=== PATIENT | female | born 2000 | race Caucasian/White ===

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

== ENCOUNTER 2018-04-07 23:22 | Emergency (ER) | payer BC, OTHER ==
[~2018-04-07] VITALS: Ht 165.1 cm; Wt 117.9 kg
--- NOTE | ~2018-04-07 | EKG ---
[place], [place] ELECTROCARDIOGRAM REPORT NAME: ELVIA PEPE UNIT #: [id number] ROOM: DOCTOR: EPIPHANY DRAFT REPORT BIRTHDATE: [birth year] [facility] Test Date: 2018-04-08 Test Time: 00:32:36 Pat Name: ELVIA PEPE Department: Room: Gender: F [employer] Manager: Lobo Rasmussen : 2000 Requested By: ABAD BOWMAN PA-C Order Number: [id number] Reading MD: Chirag Gardner MD Measurements Intervals [place] Rate: 77 P: 45 KS: 204 QRS: 52 QRSD: 80 T: 9 QT: 365 QTc: 414 Interpretive Statements Sinus rhythm Borderline prolonged [place] interval Probable left atrial enlargement Baseline wander in lead(s) I,III,aVL,aVF Electronically Signed On 04-08-2018 16:30:08 PST by Chirag Gardner MD CM:EKGRPT:ELECTROCARDIOGRAM REPORT 1630 ABAD BOWMAN PA-C EPIPHANY DRAFT REPORT ABAD BOWMAN PA-C
[~2018-04-07 23:22] MED LIST changes: +BACTROBAN CREAM15 GM T
[2018-04-08 00:09] LABS: BILIRUBIN NEGATIVE (NEGATIVE); BLOOD 3+ (NEGATIVE); CLARITY CLOUDY (CLEAR); COLOR YELLOW (YELLOW); GLUCOSE NEGATIVE (NEGATIVE); KETONE NEGATIVE (NEGATIVE); LEUKO ESTERASE 2+ (NEGATIVE); NITRITE NEGATIVE (NEGATIVE); SPECIFIC GRAVITY >= 1.030 (1.005-1.030); UROBILINOGEN 0.2 E.U./dl (0.2-1.0)
[2018-04-08 00:09] LABS: BASO # 0.1 10*3/uL (0.0-0.1); BASO % 0.7 % (0.0-1.0); EOS # 0.3 10*3/uL (0.0-0.4); HEMATOCRIT 35.7 % (37.0-47.0); HEMOGLOBIN 11.5 g/dl (12.0-16.0); LYMPH # 3.2 10*3/uL (1.3-4.4); LYMPH % 30.5 % (27.0-41.0); MEAN CELL VOLUME 92.2 fl (81.0-99.0); MEAN CORPUSCULAR HGB 29.7 pg (27.0-31.0); MEAN CORPUSCULAR HGB CONC 32.2 g/dl (33.0-37.0); MEAN PLATELET VOLUME 10.2 fl (9.6-12.3); MONO % 9.5 % (3.0-9.0); NEUT # 5.8 10*3/uL (2.3-7.9); NEUT % 55.7 % (47.0-73.0); PLATELET COUNT AUTOMATED 346 10*3/uL (130-400); RED BLOOD COUNT 3.87 10*6/uL (4.10-5.10); RED CELL DISTRI WIDTH 13.2 % (0-14.5); WHITE BLOOD COUNT 10.4 10*3/uL (4.8-10.8)
[2018-04-08 00:18] LABS: BACTERIA 1+; EPITHELIAL CELLS 45-50; RBC 31-40 rbc/hpf (0-2); WBC 31-40 wbc/hpf (0-5)
[2018-04-08 00:26] LABS: ALBUMIN 2.9 gm/dl (3.1-4.5); ALKALINE PHOSPHATASE 115 U/L (45-117); BUN 21 mg/dl (7-24); CHLORIDE 103 mmol/L (98-107); POTASSIUM 3.9 mmol/L (3.5-5.1); SGOT/AST 32 IU/L (3-35); SGPT/ALT 33 U/L (12-78); SODIUM 137 mmol/L (136-145); TOTAL PROTEIN 7.3 gm/dL (6.4-8.2)
[2018-04-08 00:29] LABS: TROPONIN I < 0.015 ng/ml (<0.045)
[2018-04-08 01:45] VITALS: BP 120/79
[2018-04-08] MEDS ORDERED: CEPHALEXIN500 M1 PO (02:15)
== END 2018-04-08 02:01 | disposition home or self-care (01) ==
LOC: ED 23:22
PROVIDERS: Physician Assistant
DX: O90.89 Other complications of the puerperium, not elsewhere classified (principal); O86.20 Urinary tract infection following delivery, unspecified; O99.335 Smoking (tobacco) complicating the puerperium; R55 Syncope and collapse; G89.18 Other acute postprocedural pain

== ENCOUNTER → 2021-09-21 | Outpatient (CLI) | payer BC, OTHER ==
[~2021-09-21] MED LIST changes: +CEPHALEXIN500 M1 PO
== END | disposition home or self-care (01) ==
LOC: US 13:54
PROVIDERS: ATTEND Nurse Practitioner Family
DX: R19.7 Diarrhea, unspecified (principal); K76.0 Fatty (change of) liver, not elsewhere classified; G43.909 Migraine, unspecified, not intractable, without status migrainosus

== ENCOUNTER → 2021-11-12 | Outpatient (CLI) | payer BC, OTHER | LOC: MRI 13:00 | PROVIDERS: ATTEND Psychiatry & Neurology Neurology | DX: C71.9 Malignant neoplasm of brain, unspecified (principal); R90.82 White matter disease, unspecified ==

== ENCOUNTER 2024-06-28 09:29 | Emergency (ER) | payer OTHER ==
[~2024-06-28] VITALS: Wt 68.0 kg
[2024-06-28] MEDS ORDERED: SODIUM CHLORIDE 0.9% 1,000 ML IV ONE (10:05)
[2024-06-28 10:25] LABS: BASO # 0.1 10*3/uL (0.0-0.1); BASO % 0.5 % (0.0-1.0); EOS # 0.7 10*3/uL (0.0-0.4); EOS % 4.8 % (1.0-4.0); HEMATOCRIT 44.8 % (37.0-47.0); MEAN CELL VOLUME 87.5 fl (81.0-99.0); MEAN CORPUSCULAR HGB 28.1 pg (27.0-31.0); MEAN CORPUSCULAR HGB CONC 32.1 g/dl (33.0-37.0); MEAN PLATELET VOLUME 10.1 fl (9.6-12.3); MONO # 0.8 10*3/uL (0.1-1.0); MONO % 5.4 % (3.0-9.0); NEUT # 10.5 10*3/uL (2.3-7.9); NEUT % 72.7 % (47.0-73.0); PLATELET COUNT AUTOMATED 305 10*3/uL (130-400); RED BLOOD COUNT 5.12 10*6/uL (4.10-5.10); RED CELL DISTRI WIDTH 13.2 % (0-14.5); WHITE BLOOD COUNT 14.5 10*3/uL (4.8-10.8)
[2024-06-28 10:47] LABS: BUN 10 mg/dl (9-23); CHLORIDE 108 mmol/L (98-107); POTASSIUM 4.2 mmol/L (3.4-5.1)
[2024-06-28] MEDS ORDERED: LAMOTRIGINE150 MG PO (11:09)
[2024-06-28] MEDS ORDERED: IOHEXOL 350 MG/ML 100 ML VIAL IV ONE (11:30)
[2024-06-28] MEDS ORDERED: SODIUM CHLORIDE 0.9% 100 ML BAG IV ONE (11:30)
[2024-06-28] MEDS ORDERED: Piperacillin Sodium/Tazobact 50 ML IV ONE (13:35)
[2024-06-28] MEDS ORDERED: fentaNYL CITRATE/PF 50 MCG/ML SYRINGE IV ONE (15:05)
[2024-06-28] MEDS ORDERED: HYDROmorphONE Hydrochloride 1 MG/ML SYR IV ONE (17:05)
[2024-06-28] MEDS ORDERED: Ondansetron Hydrochloride 4 MG/2 ML VIAL IV ONE (17:05)
[2024-06-28 18:48] VITALS: BP 125/83
== END 2024-06-28 19:35 | disposition short-term general hospital (02) ==
LOC: ED 09:29
PROVIDERS: Emergency Medicine
DX: J96.00 Acute respiratory failure, unspecified whether with hypoxia or hypercapnia (principal); Z20.822 Contact with and (suspected) exposure to COVID-19; J98.2 Interstitial emphysema; J45.909 Unspecified asthma, uncomplicated; Z87.891 Personal history of nicotine dependence